=== PATIENT | female | born 2000 | race African-American/Black ===

== ENCOUNTER 2022-05-02 18:09 | Emergency (ER) | payer BC ==
[2022-05-02] MEDS ORDERED: Ipratropium/Albuterol 3 ML NEB ONE (18:32)
[2022-05-02 20:16] LABS: Bilirubin Negative (Negative); Blood, Urine Negative (Negative); Clarity Clear (Clear); Glucose, Urine (Dipstick) Normal (Negative); Ketone, Urine Negative (Negative); Leukocyte 500 Leu/uL (Negative); Nitrite Negative (Negative); Pregnancy Test - Urine (BHCG) Negative (Negative); Pregu Control Background? CLEAR/WHITE (CLR/WHITE); Pregu Control Bar Appear? YES (CONTROL BAR); Protein, Urine (Dipstick) Negative (Neg-Trace); RBC/HPF 0-3 HPF (0-3); Specific Gravity 1.016 (1.002-1.036); Specific Gravity, Urine 1.016 (1.002-1.036); Squamous Epithelial 0-3 HPF (0-3); Urobilinogen Normal mg/dL (Less than 2)
[2022-05-02 20:17] LABS: Bacteria/HPF 1+ HPF (None Seen)
== END 2022-05-02 21:28 | disposition home or self-care (01) ==
LOC: ERS 18:09
DX: R06.02 Shortness of breath (principal); Z20.822 Contact with and (suspected) exposure to COVID-19
CPT/HCPCS: 71045; 81003; 81015; 81025; 87804; 93005; 94760; J7611; J7620; U0003; U0005